=== PATIENT | female | born 1950 | race Caucasian/White ===

== ENCOUNTER 2018-02-13 15:49 | Inpatient (IN) | payer OTHER ==
[~2018-02-13] VITALS: Ht 154.9 cm; Wt 86.2 kg
[2018-04-10] MEDS ORDERED: DIGOX125 MCG PO (09:56)
[2018-04-10] MEDS ORDERED: TOPROL XL100 M1 PO (09:57)
[2018-04-10] MEDS ORDERED: COZAAR100 MG PO (09:57)
[2018-04-10] MEDS ORDERED: NORVASC2.5 M1 PO (09:57)
[2018-04-10] MEDS ORDERED: HORIZANT300 MG PO (09:59)
[2018-04-10] MEDS ORDERED: [UNRECOGNIZED DRUG - OTHER] PO (09:59)
[2018-04-10] MEDS ORDERED: ZANTAC300 MG PO (10:00)
[2018-04-10] MEDS ORDERED: LIPITOR40 MG PO (10:00)
[2018-04-10] MEDS ORDERED: HUMALOG100 UNIT/1 (10:00)
[2018-04-10] MEDS ORDERED: LANTUS SOL100 UNIT/1 (10:01)
[2018-04-17] MEDS ORDERED: ALDACTONE50 MG PO (08:30)
[2018-04-20] MEDS ORDERED: OXYC1TAB9 PO (08:54)
[2018-04-20] MEDS ORDERED: INTEGRA PLUS C1 EACH PO (08:54)
[2018-04-20] MEDS ORDERED: XARELTO10 MG PO (08:54)
== END 2018-04-20 15:52 | DRG 470 ==
LOC: SURG 04-17 05:08 → O/R 04-17 05:08 → SURH 04-17 07:00 → SURG 04-17 12:04
PROVIDERS: ADMIT Orthopaedic Surgery Sports Medicine
PROC: 0SRC0J9 Replacement of Right Knee Joint with Synthetic Substitute, Cemented, Open Approach (ICD-10-PCS; principal; 2018-04-17 07:00)
DX: M17.11 Unilateral primary osteoarthritis, right knee (principal); D62 Acute posthemorrhagic anemia; D63.1 Anemia in chronic kidney disease; N18.3 Chronic kidney disease, stage 3 (moderate); E11.21 Type 2 diabetes mellitus with diabetic nephropathy

== ENCOUNTER 2021-02-12 08:00 | Inpatient (IN) | payer OTHER ==
[~2021-02-12] VITALS: Ht 154.9 cm; Wt 69.9 kg
[~2021-02-12 08:00] MED LIST: ALDACTONE50 MG PO; COZAAR100 MG PO; DIGOX125 MCG PO; HORIZANT300 MG PO; HUMALOG100 UNIT/1; INTEGRA PLUS C1 EACH PO; LANTUS SOL100 UNIT/1; LIPITOR40 MG PO; NORVASC2.5 M1 PO; OXYC1TAB9 PO; TOPROL XL100 M1 PO; XARELTO10 MG PO; ZANTAC300 MG PO; [UNRECOGNIZED DRUG - OTHER] PO
[2021-02-16] MEDS ORDERED: GABAPENTIN800 M1 (08:09)
[2021-02-16] MEDS ORDERED: PROAIR HFA8.5 GM (08:09)
[2021-02-16] MEDS ORDERED: FLONASE16 GM (08:10)
[2021-02-16] MEDS ORDERED: ARNUITY ELLIP100 MCG (08:10)
[2021-02-16] MEDS ORDERED: LOSARTAN-HCTZ1 EACH (08:11)
[2021-02-16] MEDS ORDERED: SPIRONOLACTONE25 MG (08:12)
[2021-02-18] MEDS ORDERED: BACTRIM DS TAB1 EACH PO (06:45)
[2021-02-18] MEDS ORDERED: ELIQUIS2.5 MG PO (06:45)
[2021-02-18] MEDS ORDERED: INTEGRA PLUS C1 EACH PO (06:45)
[2021-02-18] MEDS ORDERED: OXYC1TAB9 PO (06:45)
== END 2021-02-19 16:49 | DRG 470 ==
LOC: ADM 08:00 → EDSTATUS 08:00 → SURH 02-16 05:40 → O/R 02-16 05:40 → SURH 02-16 07:00 → OB/GYN 02-16 10:19 → O/R 02-16 10:33 → SURH 02-16 11:26
PROVIDERS: ADMIT Orthopaedic Surgery Sports Medicine; ATTEND Orthopaedic Surgery Sports Medicine
PROC: 0SRD0J9 Replacement of Left Knee Joint with Synthetic Substitute, Cemented, Open Approach (ICD-10-PCS; principal; 2021-02-16 07:00)
PROC: 30233N1 Transfusion of Nonautologous Red Blood Cells into Peripheral Vein, Percutaneous Approach (ICD-10-PCS; 2021-02-18)
DX: M17.12 Unilateral primary osteoarthritis, left knee (principal); D62 Acute posthemorrhagic anemia; Z20.822 Contact with and (suspected) exposure to COVID-19